=== PATIENT | female | born 1975 | race Caucasian/White ===

== ENCOUNTER 2019-02-25 13:00 | Emergency (ER) | payer OTHER ==
[2019-02-25] MEDS ORDERED: Ondansetron INJ* 2 MG/ML VIAL IV ONE (14:06)
[2019-02-25] MEDS ORDERED: Morphine 4 MG/ML VIAL (1 ml) 4 MG/ML VIAL IV ONE (14:06)
[2019-02-25] MEDS ORDERED: NS 0.9% 1000 ML** 1,000 ML IV ONE ×2 (14:07→14:23)
--- NOTE | 2019-02-25 14:08 | ED ---
Abdominal Pain/Female - HPI Summary HPI Summary: Pt. is a 44 y.o female who presents to the ER for severe RUQ pain x 2 days. Pt. states he has a hx of gallbladder stones but states she has not had pain in many years. Pt. states she has not ate or drank in 2 days. Pt. denies fever, cp , sob, fever. No other past medical hx. Sxs are moderate in severity. No current modifying factors. - History of Current Complaint Chief Complaint: EDAbdPain Stated Complaint: ABD PAIN Time Seen by Provider: 02/25/19 13:43 Hx Obtained From: Patient Pain Intensity: 7 Allergies/Adverse Reactions: Allergies Allergy/AdvReac Type Severity Reaction Status Date / Time No Known Allergies Allergy Verified 02/25/19 13:19 Home Medications: Home Medications ALPRAZolam [Alprazolam] 0.25 mg PO DAILY PRN 02/25/19 [History Confirmed ] Amitriptyline TAB* [Elavil TAB*] 50 mg PO BEDTIME 02/25/19 [History Confirmed ] Cannabidiol (CBD) Extract (NF) [Epidiolex (NF)] 1 - 2 drop PO BID 02/25/19 [ History Confirmed 02/25/19] Propranolol TAB* [Inderal TAB*] 40 mg PO DAILY 02/25/19 [History Confirmed 02/25] SUMAtriptan SQ* [Imitrex SQ*] 6 mg SUBCUT SEE INSTRUCTIONS PRN 02/25/19 [ History Confirmed 02/25/19] PMH/Surg Hx/FS Hx/Imm Hx Previously Healthy: Yes - Immunization History Immunizations Up to Date: Yes Infectious Disease History: No Infectious Disease History: Denies: Traveled Outside the [place] in Last 30 Days - Family History Known Family History: Positive: Non-Contributory - Social History Occupation: Unemployed Lives: With Family Alcohol Use: Weekly Alcohol Amount: wine Substance Use Type: Reports: None Smoking Status (MU): Never Smoked Tobacco Review of Systems Constitutional: Negative Negative: Fever, Chills Eyes: Negative ENT: Negative Cardiovascular: Negative Respiratory: Negative Positive: Abdominal Pain, Nausea. Negative: Vomiting, Diarrhea Genitourinary: Negative Neurological: Negative All Other Systems Reviewed And Are Negative: Yes Physical Exam Triage Information Reviewed: Yes Vital Signs On Initial Exam: Initial Vitals Temp Pulse Resp BP Pulse Ox 98.8 F 120 22 150/103 99 02/25/19 13:06 02/25/19 13:06 02/25/19 13:06 02/25/19 13:06 02/25/19 13:06 Vital Signs Reviewed: Yes Appearance: Positive: Pain Distress - Pt. lying in bed, appears in but. Tearful. Skin: Positive: Warm, Dry Head/Face: Positive: Normal Head/Face Inspection Eyes: Positive: Normal, EOMI, KENDELL Neck: Positive: Supple Respiratory/Lung Sounds: Positive: Clear to Auscultation, Breath Sounds Present Cardiovascular: Positive: Normal, RRR Abdomen Description: Positive: Other: - Examine is limited secondary to pt.'s pain. MIld diffuse abd. pain and marked tenderness to RUQ with light palpation. No rigidity. Neurological: Positive: Normal, CN Intact II-III Psychiatric: Positive: Affect/Mood Appropriate Diagnostics - Vital Signs Vital Signs Temp Pulse Resp BP Pulse Ox 02/25/19 13:06 98.8 F 120 22 150/103 99 - Laboratory Result Diagrams: 02/25/19 14:15 02/25/19 14:15 Lab Statement: Any lab studies that have been ordered have been reviewed, and results considered in the medical decision making process. Abdominal Pain Fem Course/Dx - Course Course Of Treatment: Pt. presenting with severe RUQ pain and a hx of gallstones. Pt. started on IV fluids, morphine and zofran. Pt. is afebrile. HR did jump into the 140's. Pt. states she has no hx of tachycardia. ECG done at 1432 shows a sinus tachycardia of 145bpm. Given pt.'s pain, hx and tachycardia concerned for early sepsis sedondary to cholecystitis, IV zosyn ordered. Pending labs and GB u/s. CBC shows normal WBC. Heme concentrated. Cr mildly elevated 1.07 and GFR 55.5. lactic acid 2.8. Bilirubin 1.3. GB U/S per radiology: IMPRESSION: #. Hepatosteatosis. #. Cholelithiasis and biliary sludge with nonmobile appearing 2.4 cm stone at the. gallbladder neck. Positive for sonographic Coates's sign. Negative for significant. gallbladder wall thickening or appreciable pericholecystic fluid. Correlate clinically for. early acute cholecystitis. On re-exam pt. states she is feeling much better and pain is 1/10. Given a second liter of NSS for dehydration and elevated lactic. Repeat lactic acid is normal. On re-exam pt. notes her pain is coming back. Concerned for early cholecysitis. Case discussed with logan Han, who recommends admission for surgical consult. Discussed with pt. and pt. states she would rather go home today and discuss sugery with her family who lives in [place]. Explained to pt. given ongoing pain that she may be heading towards an infection. Pt. understands risk of going home today. Will sign out AMA. Pt. has decision making compacity. EMPLOYEE PLACEMENT SPECIALIST reviewed and no red flags noted. Lortab rx. Strongly encouraged pt. to f.u with surgery POOL and return to ER for worsening pain, fever, vomiting. - Diagnoses Differential Diagnosis: Positive: Ectopic , Gall Bladder Disease, Hepatitis, Renal Colic Provider Diagnoses: Cholelithiasis, Dehydration Discharge - Sign-Out/Discharge Documenting (check all that apply): Patient Departure Patient Received Moderate/Deep Sedation with Procedure: No - Discharge Plan Condition: Stable Disposition: AGAINST MEDICAL ADVICE Prescriptions: HYDROcodone/ACETAMIN 5-325 MG* [[place] 5-325 TAB*] 1 tab PO Q6H PRN #12 tab MDD 4 PRN Reason: Pain Patient Education Materials: Gallstones (ED) Referrals: Ranjan Villa MD [Medical Doctor] - Additional Instructions: Follow up with the surgery clinic as soon as possible Avoid fatty/greasy food Increase fluids Return to ER for increased pain, fever, vomiting - Billing Disposition and Condition Condition: STABLE Disposition: Against Medical Advice
[2019-02-25] MEDS ORDERED: Piperacillin/Tazobac ADVAN(*) 3.375 GM in NS 0.9% 100 ML* 100 ML IVPB ONE (14:25)
[2019-02-25] MEDS ORDERED: Piperacillin/Tazobac (*) 3.375 GM BAG ONE (14:31)
[2019-02-25 14:50] LABS: ABS Eosinophils 0.2 10^3/ul (0-0.6); ABS Lymphocytes 1.7 10^3/ul (1.0-4.8); ABS Monocytes 0.8 10^3/ul (0-0.8); ABS Neutrophils 7.4 10^3/ul (1.5-7.7); Eosinophil % 1.8 %; Hematocrit 45 % (35-47); Hemoglobin 16.3 g/dL (12.0-16.0); Lymphocyte % 17.1 %; Mean Corpuscular HGB Conc 36 g/dL (31-36); Mean Corpuscular Hemoglobin 33 pg (27-31); Mean Corpuscular Volume 91 fL (80-97); Mean Platelet Volume 8.2 fL (7.4-10.4); Nucleated Red Blood Cells % 0.1; Platelet Count 355 10^3/uL (150-450); Red Blood Count 4.98 10^6 /uL (3.70-4.87); Red Cell Distribution Width 13 % (10-15); White Blood Count 10.2 10^3/uL (3.5-10.8)
[2019-02-25 14:53] LABS: ALT 31 U/L (7-52); AST 20 U/L (13-39); Albumin 5.5 g/dL (3.2-5.2); Albumin/Globulin Ratio 1.5 (1-3); Alkaline Phosphatase 51 U/L (34-104); Anion Gap 17 mmol/L (2-11); BUN/Creatinine Ratio 12.1 (8-20); Blood Urea Nitrogen 13 mg/dL (6-24); C Reactive Protein 8.68 mg/L (<8.01); CO2 Carbon Dioxide 18 mmol/L (22-32); Calcium 11.1 mg/dL (8.6-10.3); Chloride 102 mmol/L (101-111); EGFR African American 67.1 (>60); EGFR Non-African American 55.5 (>60); Globulin 3.6 g/dL (2-4); Glucose 156 mg/dL (70-100); Potassium 3.8 mmol/L (3.5-5.0); Sodium 137 mmol/L (135-145); Total Protein 9.1 g/dL (6.4-8.9)
[2019-02-25 14:54] LABS: HCG Pregnancy < 0.60 mIU/mL
[2019-02-25 16:59] LABS: Urine Appearance Turbid; Urine Bacteria 1+ (Absent); Urine Bilirubin Negative (Negative); Urine Blood Negative (Negative); Urine Color Amber; Urine Glucose Negative (Negative); Urine Ketones 2+ (Negative); Urine Nitrite Negative (Negative); Urine Protein 2+(100 mg/dL) (Negative); Urine Red Blood Cell 2+(6-10/hpf) (Absent); Urine Specific Gravity 1.036 (1.010-1.030); Urine Squamous Epithelial Cell Present (Absent); Urine Urobilinogen Negative (Negative); Urine White Blood Cell 1+(6-10/hpf) (Absent)
[2019-02-25 18:01] VITALS: BP 136/90
== END 2019-02-25 17:59 | disposition left against medical advice (07) ==
LOC: ED 13:00
DX: K80.20 Calculus of gallbladder without cholecystitis without obstruction (principal); E86.0 Dehydration; K76.0 Fatty (change of) liver, not elsewhere classified; R00.0 Tachycardia, unspecified
CPT/HCPCS: 36415; 76705; 80053; 81003; 81015; 83605; 83690; 84702; 85025; 86140; 87040; 87086; 93005; 96361; 96374; 96375; 99284; J2270; J2405; J2543

== ENCOUNTER 2019-02-28 15:47 | Observation (INO) | payer OTHER ==
--- OUTSIDE RECORDS SUMMARY | 2019-02-28 16:06 | XMS REPORT | Continuity of Care Document ---
:1975 External Reference #:[id number] Author Name Yumiko Thompson Care Team Providers Name Role Phone Opal Ron PITCH FILLER Primary Care Physician Unavailable Payers Date Identification Numbers Payment Provider Subscriber Policy Number: [id number] Timothy Mauro PayID: [id number] [address] [place] [address] Family History Date Family Member(s) Observation Comments Father 71 Father Bipolar Disorder Father Melanoma Mother 71 Mother Glaucoma Mother Gallbladder Disease First Sister 45 First Sister Bipolar Disorder First Sister Hypercholesterolemia Paternal Grandfather due to Parkinsons Disease () - at age 84 Paternal Grandmother due to old age () - age 91 Maternal Grandfather due to Heart Disease () - at age 85 Maternal Grandmother due to old age () - at age 91 Social History Type Date Description Comments Sex Unknown Marital Status Single Lives With Alone Occupation Student ETOH Use consumes 6-7 glasses of wine per week Tobacco Use Start: Unknown Patient has never smoked Recreational Drug Use Denies Drug Use Smoking Status Reviewed: 02/28/19 Patient has never smoked Exercise Type/Frequency Exercises sporadically vigorous Allergies, Adverse Reactions, Alerts Description No Known Drug Allergies Medications Active Medications SIG Qnty Indications Ordering Date Provider Alprazolam Take 1 Tablet 30tabs Zsofia Asaf, 01/26/2019 0.25mg Tablets By Mouth Every PITCH FILLER Day as Needed For Anxiety Maximum Daily Dose Of 1 Per Day Amitriptyline HCL take 2 tablets 180tabs G43.009 Zsofia Asaf, 06/09/2018 25mg by mouth every PITCH FILLER Tablets night at bedtime Cyclobenzaprine HCL take one tablet 14tabs Zsofia Asaf, 04/14/2018 5mg by mouth at PITCH FILLER Tablets bedtime as needed for back pain CBD Oil 2 cap by mouth Other Ordering 02/28/2018 every day every Provider morning Propranolol HCL Take 2 Tablets 180tabs G43.009 Opal Sungk, 07/08/2017 20mg By Mouth Every PITCH FILLER Tablets Day Imitrex take 1 tab by 30tabs G43.009 Opal Ron, 04/29/2017 100mg Tablets mouth at onset PITCH FILLER to headache, may repeat it 2 hours later. max daily dose 200 mg/24 h Diphenhydramine HCL as needed Unknown 25mg Capsules Unisom as needed Unknown 25mg Tablets Magnesium otc once a day Unknown 300mg Capsules Ibuprofen as needed Unknown 200mg Capsules Hydrocodone-Acetaminoph Take One Tablet Unknown en By Mouth Every 5-325mg Tablets 6 Hours as Needed For Pain Maximum Daily Dose Of 4Per Day History Medications Amitriptyline HCL take 1 tab by 90tabs F41.9 Opal Sungk, 06/03/2017 - 10mg mouth at in the PITCH FILLER 06/09/2018 Tablets morning and 2 tab bedtime G43.009 Propranolol HCL take 1 tab po 90tabs G43.009 Opal Sungk, 06/03/2017 - 20mg qday [facility] 07/08/2017 Tablets Xanax 1 tab by mouth 30tabs Opal Ron, 06/02/2017 - 0.25mg Tablets daily as needed [facility] Unknown for anxiety Amitriptyline HCL take 2 tab by 180tabs F41.9 Opal Ron, 04/29/2017 - 10mg mouth at PITCH FILLER 06/03/2017 Tablets bedtime as needed Turmeric as needed Unknown - 450mg Capsules Unknown Immunizations CPT Code Status Date Vaccine Lot # [id number] Given 06/09/2018 Influenza Virus Vaccine, Quadrivalent, Split, [id number] Preservative Free [id number] Given 06/03/2017 Influenza Virus Vaccine, Quadrivalent, Split, [id number] Preservative Free [id number] Given 04/29/2017 Tdap - Tetanus/Diptheria/Acellular Pertussis [id number] Vital Signs Date Vital Result Comment 02/28/2019 2:16pm Height 63 inches 5'3" Weight 140.00 lb Heart Rate 96 /min BP Systolic Sitting 112 mmHg BP Diastolic Sitting 78 mmHg Respiratory Rate 16 /min Body Temperature 97.2 F BMI (Body Mass Index) 24.8 kg/m2 06/09/2018 11:29am Height 63 inches 5'3" Weight 146.00 lb Heart Rate 85 /min BP Systolic 110 mmHg BP Diastolic 78 mmHg O2 % BldC Oximetry 98 % BMI (Body Mass Index) 25.9 kg/m2 06/03/2017 10:56am Weight 154.00 lb Heart Rate 115 /min BP Systolic Sitting 120 mmHg BP Diastolic Sitting 68 mmHg Body Temperature 98.4 F O2 % BldC Oximetry 98 % 04/29/2017 1:06pm Height 63 inches 5'3" Weight 155.12 lb Heart Rate 88 /min BP Systolic Sitting 136 mmHg BP Diastolic Sitting 90 mmHg Body Temperature 99.3 F O2 % BldC Oximetry 98 % BMI (Body Mass Index) 27.5 kg/m2 Results Test Date Facility Test Result H/L Range Note Laboratory test 06/03/2017 [facility] Cytology SEE RESULT [address] [place] [id number] [phone] Human Papilloma Virus Rna Negative N Negative 2 1 SEE RESULT BELOW Name: CANDIDA MAURO : [address]: Opal Ron NP Acct: [id number] Unit: [id number] AGE: 42 Location: [facility] Re06/03/17 SEX: F Status: REG REF SPEC: [id number] MIGUEL: 06/03/17-115 [facility] DR: Opal Ron FACILITY SERVICE MANAGER REQ: [id number] RECD: 06/03/17 STATUS: SOUT _ ORDERED: TP IMAGE ANAL, HPV/Thin Prep COMMENTS: [id number] FINAL DIAGNOSIS Negative for Intraepithelial lesion or Malignancy A. Ectocervical/Endocervical Specimen Adequacy: Satisfactory of evaluation Transformation zone component not identified Patient Information: HPV: High risk HPV RNA testing regardless of pap results. Actual Specimen Date: 06/03/17 Last Menstrual Date: 05/25/17 ?: N Post Menopausal?: N Hysterectomy?: N Previous Abnormal Pap Smears?:N Date Time Test Result Flag (u) Normal Range 06/03/17 1155 HPV RNA Negative Negative The high-risk HPV types detected by the assay include: 16, 18, 31, 33, 35, 39, 45, 51, 52, 56, 58, 59, 66, and 68. Signed (signature on file) EDWIN Van(ASCP) 06/05 0908 This Pap test was evaluated with the assistance of the ThinPrep Test Imaging System. Due to cytologic findings at the fitness professional microscope, comprehensive manual rescreening by a Guest Experience Captain may be required. The Pap Smear is a screening test designed to aid in the detection of premalignant and malignant conditions of the uterine cervix. It is not a diagnostic procedure and should not be used as the sole means of detecting cervical cancer. Both false- positive and false- negative reports do occur. Depending on your risk status, a Pap smear should be obtained and evaluated every 1-3 years. END OF REPORT * ML=Testing performed at Main Lab DEPARTMENT OF PATHOLOGY, [address] [place] [address] Abdullahi Lew M.D. Director [facility] # [id number] 2 The high-risk HPV types detected by the assay include: 16, 18, 31, 33, 35, 39, 45, 51, 52, 56, 58, 59, 66, and 68. Encounters Type Date Location Provider Dx Diagnosis Office Visit 06/09/2018 [facility] Internal Opal Ron, Z00.00 Encntr for general 11:20a Medicine - Suite [facility]ILLER adult medical exam R w/o abnormal findings G43.009 Migraine w/o aura, not intractable, w/o status migrainosus F41.9 Anxiety disorder, unspecified Z23 Encounter for immunization Z13.220 Encounter for screening for lipoid disorders Office Visit 06/03/2017 11:20a [facility] Internal Opal Ron, Z01.419 Encntr for rn gynecology Medicine - Suite [facility]ER exam (general) R (routine) w/o abn findings G43.009 Migraine w/o aura, not intractable, w/o status migrainosus F41.9 Anxiety disorder, unspecified Z23 Encounter for immunization Office Visit 04/29/2017 1:00p [facility] Internal Opal Ron, Z00.00 Encntr for Medicine - Suite [facility] general adult R medical exam w/o abnormal findings G43.009 Migraine w/o aura, not intractable, w/o status migrainosus F41.9 Anxiety disorder, unspecified Z13.220 Encounter for screening for lipoid disorders Z13.1 Encounter for screening for diabetes mellitus Z23 Encounter for immunization Plan of Treatment Future Appointment(s):06/15/2019 10:20 am - [facility] Eduardo Lares MD, FACSK81.0 Acute cholecystitisRecommendations:Direct admission for IVF, antibiotics. Lap cholecystectomy in AM.F41.9 Anxiety disorder, unspecified
[2019-02-28 17:21] LABS: Hematocrit 39 % (35-47); Hemoglobin 13.3 g/dL (12.0-16.0); Mean Corpuscular HGB Conc 34 g/dL (31-36); Mean Corpuscular Hemoglobin 31 pg (27-31); Mean Corpuscular Volume 92 fL (80-97); Mean Platelet Volume 7.9 fL (7.4-10.4); Platelet Count 283 10^3/uL (150-450); Red Blood Count 4.27 10^6 /uL (3.70-4.87); Red Cell Distribution Width 13 % (10-15); White Blood Count 8.2 10^3/uL (3.5-10.8)
[2019-02-28 17:44] LABS: ALT 29 U/L (7-52); AST 18 U/L (13-39); Albumin 4.4 g/dL (3.2-5.2); Albumin/Globulin Ratio 1.3 (1-3); Alkaline Phosphatase 62 U/L (34-104); Anion Gap 8 mmol/L (2-11); BUN/Creatinine Ratio 11.9 (8-20); Blood Urea Nitrogen 8 mg/dL (6-24); CO2 Carbon Dioxide 26 mmol/L (22-32); Calcium 9.6 mg/dL (8.6-10.3); Chloride 103 mmol/L (101-111); EGFR African American 115.2 (>60); EGFR Non-African American 95.2 (>60); Globulin 3.3 g/dL (2-4); Glucose 122 mg/dL (70-100); Potassium 3.8 mmol/L (3.5-5.0); Sodium 137 mmol/L (135-145); Total Protein 7.7 g/dL (6.4-8.9)
[2019-02-28] MEDS ORDERED: ALPRAZolam TAB* 0.25 MG PO PRN ×2 (19:02→19:17)
[2019-02-28] MEDS ORDERED: SUMAtriptan TAB* 100 MG PO PRN (19:04)
[2019-02-28] MEDS ORDERED: Cyclobenzaprine TAB* 10 MG PO PRN (19:06)
[2019-02-28] MEDS ORDERED: Ondansetron INJ* 2 MG/ML VIAL IV PRN (19:07)
[2019-02-28] MEDS ORDERED: Zosyn per Pharmacy* NOTE FOLLOW UP PRN (19:08)
[2019-02-28] MEDS ORDERED: NS 0.9% 1000 ML** 1,000 ML IV SCH (19:15)
[2019-02-28] MEDS ORDERED: ZOSYN 3.375 GM x ONE DOSE over 30 miuntes IVPB ×2 (19:30)
[2019-02-28] MEDS ORDERED: Amitriptyline TAB* 50 MG PO SCH (21:00)
[2019-02-28] MEDS: Morphine INJ* 2 MG/ML 1 ML SYRINGE (TWO MG - NEW SYRINGE VERSION) IV PRN (23:32)
[2019-02-28] MEDS: ZOSYN 3.375 GM Q8H per EXTENDED INFUSION IVPB SCH ×2 (23:38)
[2019-03-01] MEDS ORDERED: Lactated Ringers 1000 ML Bag* 1,000 ML IV SCH ×2 (00:01→06:00)
[2019-03-01] MEDS: Morphine INJ* 2 MG/ML 1 ML SYRINGE (TWO MG - NEW SYRINGE VERSION) IV PRN ×4 (02:00→06:42)
[2019-03-01] MEDS ORDERED: Famotidine IV* 10 MG/ML 2 ML (20 mg) IV ONE (06:00)
[2019-03-01] MEDS ORDERED: Famotidine IV* 10 MG/ML 2 ML (20 mg) ONE (06:38)
[2019-03-01] MEDS ORDERED: Buffered Lidocaine 1% SYRIN* 1 ML/SYRINGE INTRADERM ONE (06:38)
[2019-03-01] MEDS: Propranolol TAB* 40 MG PO SCH ×2 (06:43→07:02)
[2019-03-01] MEDS ORDERED: Bupivacaine 0.25% EPI 200,000* 30 ML SDV ONE (07:13)
[2019-03-01] MEDS ORDERED: fentaNYL* 50 MCG/ML 2 ML VIAL (100 MCG VIAL) ONE (07:32)
[2019-03-01] MEDS ORDERED: Midazolam* 1 MG/ML 5 ML VIAL (5 MG) ONE (07:32)
[2019-03-01] MEDS ORDERED: Ketorolac INJ* 30 MG/ML 1 ML VIAL ONE (08:11)
[2019-03-01] MEDS ORDERED: Lidocaine 2% PF * 5 ML VIAL ONE (08:11)
[2019-03-01] MEDS ORDERED: Dexamethasone IV* 4 MG/ML 1 ML (4 MG) ONE (08:11)
[2019-03-01] MEDS ORDERED: Succinylcholine* 20 MG/ML 10 ML VIAL ONE (08:11)
[2019-03-01] MEDS ORDERED: Propofol* 10 MG/ML 20 ML BTL ONE (08:11)
[2019-03-01] MEDS ORDERED: DiMENhydriNATE IV* 50 MG/ML VIAL ONE (08:11)
[2019-03-01] MEDS ORDERED: Ondansetron INJ* 2 MG/ML VIAL ONE (08:11)
[2019-03-01] MEDS ORDERED: Rocuronium* 10 MG/ML VIAL ONE (08:12)
[2019-03-01] MEDS ORDERED: HYDROmorphone INJ1* 1 MG/ML SYRINGE IV PRN (08:25)
[2019-03-01] MEDS ORDERED: oxyCODONE TAB* 5 MG TAB PO PRN (08:25)
[2019-03-01] MEDS ORDERED: Naloxone* 0.4 MG/ML 1 ML VIAL IV PRN (08:25)
[2019-03-01] MEDS ORDERED: DiMENhydriNATE IV* 50 MG/ML VIAL IV PUSH PRN (08:25)
[2019-03-01] MEDS ORDERED: Acetaminophen IV 1GM/100ML * 1,000 MG/100 ML VIAL IVPB ONE (08:25)
[2019-03-01] MEDS ORDERED: HYDROmorphone INJ1* 1 MG/ML SYRINGE ONE (08:43)
--- NOTE | 2019-03-01 09:36 | OP ---
Operative Report - Blank - Operative Report Date of Operation: 03/01/19 Note: Brief Operative Note Preop Dx: acute calculous cholecystitis Postop Dx: same Procedure: Laparoscopic cholecystectomy Anesthesia: GET Surgeon: Arnaud [employer] Crm Developer: SALEEM Lopez PA-S Fluids: 1700 ml RL EBL: < 50 ml Specimen: gallbladder and contents Drains: none Findings: dictated
[2019-03-01] MEDS ORDERED: Glycopyrrolate IV* 0.2 MG/ML 1 ML VIAL ONE (11:03)
[2019-03-01] MEDS ORDERED: Neostigmine Methylsulfate* 1 MG/ML 10 ML VIAL (1 mg/ml) ONE (11:03)
[2019-03-01] MEDS: ZOSYN 3.375 GM Q8H per EXTENDED INFUSION IVPB SCH ×2 (11:03)
[2019-03-01] MEDS ORDERED: Acetaminophen TAB* 325 MG PO PRN (11:31)
[2019-03-01] MEDS ORDERED: Ibuprofen TAB* 600 MG PO PRN (11:31)
[2019-03-01] MEDS ORDERED: Morphine 4 MG/ML VIAL (1 ml) 4 MG/ML VIAL IV PRN (11:31)
[2019-03-01] MEDS ORDERED: oxyCODONE/Acetamin 5/325 MG* TAB PO PRN (11:32)
[2019-03-01 15:22] VITALS: BP 103/62
--- NOTE | 2019-03-01 20:26 | DS ---
DISCHARGE SUMMARY: DATE OF ADMISSION: 02/28/19 DATE OF DISCHARGE: 03/01/19 ATTENDING SURGEON: Dr. Eduardo [facility] (DICTATED BY DERIK HANDLEY NP) HOSPITAL COURSE: Please refer to admission history and physical for admission details. The patient was taken to the operating room on 03/01/19, and underwent laparoscopic cholecystectomy. She returned to the short-stay surgical unit for IV antibiotics prior to being discharged; she has had an otherwise uneventful postoperative course; she tolerated a low-fat diet; she has been ambulating; her urine output has been large and she denies any dysuria and her pain is well controlled. PHYSICAL EXAMINATION: Vital Signs: Temperature 98.2, blood pressure 103/62, heart rate varies from 65 to 100, respiratory rate 16, O2 saturation on room air 97%. General: Well nourished and in no acute distress, sitting up in bed asking to go home. Lungs: Breath sounds bilaterally clear and equal. Heart: Regular rate and rhythm. No murmurs or rubs. Abdomen: Laparoscopic port sites intact with skin glue; no active bleeding or drainage. Bowel sounds are present. Abdomen is soft with appropriate postoperative tenderness around the incisions. Extremities are warm without edema and her calves are nontender bilaterally. IMPRESSION: Status post laparoscopic cholecystectomy, doing well. CONDITION: Stable. PLAN: Discharge home today. She will resume her usual medications; a prescription was provided for oxycodone/acetaminophen; she will follow a low- fat diet as instructed and she will be seen in our office in approximately 1 week. Discharge instructions were reviewed with the patient and all of her questions were answered. DERIK HANDLEY NP [id number]/[facility] #: [id number] SALTY
--- NOTE | 2019-03-02 08:26 | OP ---
CC: Opal Ron NP * DATE OF OPERATION: 03/01/19 - ROOM #347 DATE OF : [birth year] SURGEON: Eduardo Lares MD PRICER: AIDEN Stark ANESTHESIOLOGIST: Elinor Still MD ANESTHESIA: General endotracheal. PRE-OP DIAGNOSIS: Acute calculous cholecystitis. POST-OP DIAGNOSIS: Acute calculous cholecystitis. OPERATIVE PROCEDURE: Laparoscopic cholecystectomy. ESTIMATED BLOOD LOSS: Less than 50 mL. IV FLUIDS: 1.7 L crystalloid. SPECIMENS: Gallbladder contents. DRAINS: None. COMPLICATIONS: None. COUNTS: Instrument, needle, and sponge counts were correct. DESCRIPTION OF PROCEDURE: The patient was brought to the operating room and placed on the table supine. Sequential compression devices were placed on both lower extremities. General anesthesia was administered. She was positioned and then padded appropriately. She was prepped and draped in usual sterile fashion. She received appropriate intravenous antibiotics. A time-out was performed. Local anesthetic was infiltrated into the skin and soft tissue prior to making each incision. Entry into the abdomen was through a transumbilical incision using an open technique. After accessing the peritoneal cavity, carbon dioxide was insufflated to a pressure of 15 mmHg. Under direct visualization, 5 mm trocars were placed in the subxiphoid and also in the right upper quadrant near the costal margin, 1 medially and 1 laterally. Inspection revealed the patient to have acute cholecystitis with inflamed, distended, pale gallbladder. In order to grasp the gallbladder, it was first decompressed and this was achieved by creating cholecystotomy with cautery and then using the endoscopic suction to aspirate the gallbladder. The gallbladder was then grasped at the cholecystotomy site and this was used to retract the fundus cephalad. The gallbladder wall was quite thickened, and in order to define the plane between the gallbladder wall and the liver, the dissection proceeded along the area of the infundibulum scoring the thickened peritoneum with cautery and then extending this on the medial and lateral aspects of the gallbladder. A combination of sharp and blunt dissection as well as endoscopic suction and cautery were used to define the infundibulum, and the dissection identified the cystic artery and subsequently cystic duct. Ultimately, critical view was obtained and each structure was double-clipped and divided. The gallbladder was grasped with a cystic duct stump and retracted cephalad, and cautery was used to carve the gallbladder from the gallbladder fossa staying within the thickened of the gallbladder wall. The dissection proceeded both in an antegrade and retrograde fashion due to large size of the gallbladder and its inflamed nature. The dissection did not enter into the gallbladder lumen. The gallbladder was in this manner freed and was able to be placed into the endoscopic retrieval bag. Next, the bag itself was brought up through the umbilical site. There were noted to be several large stones within the gallbladder and these were crushed by opening the bag, exteriorizing the cystic duct of the gallbladder and then by grasping the gallbladder with Casimiro clamps. The wall was elevated, a curved large Nury clamp and clamp were used to extract fragmented gallstones in the gallbladder itself in a piecemeal fashion until the entire specimen could be removed. Subsequently, pneumoperitoneum was established. Hemostasis was assured. Irrigation was performed until clear. Clips were noted to be intact. Ports were removed under direct visualization. Carbon-dioxide was released. Umbilicus was closed with 3 -0 Vicryl to approximate the fascia in a [id number] fashion. Skin incisions were closed with 4-0 Monocryl in a subcuticular fashion. Steri- strips were applied. The patient tolerated the procedure well and then extubated and transferred to recovery in stable condition. [id number]/[facility] #: [id number] [facility] HOSPITALDusty
== END 2019-03-01 16:55 | disposition home or self-care (01) ==
LOC: SSU 16:00
PROVIDERS: ADMIT Surgery; ATTEND Surgery
DX: K80.40 Calculus of bile duct with cholecystitis, unspecified, without obstruction (principal); F41.9 Anxiety disorder, unspecified
CPT/HCPCS: 36415; 80053; 81025; 82248; 83690; 85027; 86850; 86900; 86901; 88304; 96361; 96374; 96375; 96376; A9270-GY; G0378; J0330; J1100; J1170; J1240; J1885; J2250; J2270; J2405; J2543; J2704; J2710; J3010